=== PATIENT | female | born 1990 | race Two or more races ===

== ENCOUNTER 2019-10-30 08:15 | Emergency (ER) | payer SELFPAY ==
--- NOTE | 2019-10-30 08:46 | EDM.PDOC ---
ED HPI GENERAL MEDICAL PROBLEM - General Chief Complaint: GATE GUARD Problem Stated Complaint: 8 WEEKS PG AND BLEEDING Time Seen by Provider: 10/30/19 08:50 Source of Information: Reports: Patient, Family History Limitations: Reports: Language Barrier, Other (translation by myself and ) - History of Present Illness INITIAL COMMENTS - FREE TEXT/NARRATIVE: HISTORY OF PRESENT ILLNESS: Patient is a 29-year-old female at 8 weeks who presents with vaginal bleeding since yesterday. She has used toilet paper as she has no pads at home and has changed the toilet paper 3 times. She initially had some small clots but now has progressed to light vaginal bleeding. Denies any abdominal pain, nausea vomiting. No fevers chills cough or chest pain. Denies any urinary symptoms. No rash, weakness numbness tingling. Denies any syncope. Patient saw her OB yesterday and had ultrasound performed. She does not know her blood type. REVIEW OF SYSTEMS: Other than the symptoms associated with the present events, the following is reported with regard to recent health: General: (-) fever. HENT: (-) congestion. Respiratory: (-) cough. Cardiovascular: (-) chest pain. GI: (-) abdominal pain. : (-) urinary complaints. Musculoskeletal: (-) other aches or pains. Endocrine: (-) generalized weakness. Neurological: (-) localized weakness. Skin: (-) rash PAST MEDICAL HISTORY: reviewed as per nursing notes SOCIAL HISTORY: reviewed as per nursing notes, MEDICATIONS: Per nurse's note ALLERGIES: Per nurse's note, reviewed by me PHYSICAL EXAMINATION: GENERALIZED APPEARANCE: well developed, well nourished in no distress VITAL SIGNS: Per nurse's note, reviewed by me SKIN: Warm, dry; (-) cyanosis; (-) rash. HEAD: (-) scalp swelling, (-) tenderness. EYES: (-) conjunctival pallor, (-) scleral icterus. ENMT: (-) stridor; mucous membranes moist. NECK: (-) tenderness, (-) stiffness, CHEST AND RESPIRATORY: (-) rales, (-) rhonchi, (-) wheezes; breath sounds equal bilaterally. HEART AND CARDIOVASCULAR: (-) irregularity; (-) murmur, (-) gallop. ABDOMEN AND GI: Soft; (-) tenderness, (-) guarding, (-) rebound, (-) palpable masses, EXTREMITIES: (-) deformity, (-) edema. NEURO AND PSYCH: Alert. Cranial nerves grossly intact; strength symmetric. gait steady PELVIC: scant vaginal bleeding from closed cervical os. no palpable masses. Roof Bolter Operator: DESTIN Craft DIAGNOSTICS: US: as read by radiologist, reviewed by myself Labs ordered and reviewed EMERGENCY DEPARTMENT COURSE AND TREATMENT: Patient's condition remained stable during Emergency Department evaluation. Pt Rh +, Hg noted, ultrasound demonstrating live IUP. Pt hemodynamically stable. Given miscarriage precautions. Must follow-up with OB in 1 to 2 days and return immediately with any new or worsening symptoms. PLAN AND FOLLOW-UP: Patient received written and verbal instructions regarding this condition. Return to ED immediately with any new or worsening symptoms. Follow up to be arranged by patient with OB in 1-2 days for further evaluation. Given discharge precautions. Patient expressed verbal understanding. - Related Data Allergies Allergy/AdvReac Type Severity Reaction Status Date / Time No Known Allergies Allergy Verified 10/30/19 08:36 Home Meds: Home Meds . [No Known Home Meds] 10/30/19 [History] Past Medical History HEENT History: Reports: None Cardiovascular History: Reports: None Respiratory History: Reports: None Gastrointestinal History: Reports: None Genitourinary History: Reports: None GATE GUARD History: Reports: None Musculoskeletal History: Reports: None Neurological History: Reports: None Psychiatric History: Reports: None Endocrine/Metabolic History: Reports: None Hematologic History: Reports: None Immunologic History: Reports: None Oncologic (Cancer) History: Reports: None Dermatologic History: Reports: None - Infectious Disease History Infectious Disease History: Reports: None - Past Surgical History Head Surgeries/Procedures: Reports: None HEENT Surgical History: Reports: None Cardiovascular Surgical History: Reports: None Respiratory Surgical History: Reports: None GI Surgical History: Reports: None Female Surgical History: Reports: None Endocrine Surgical History: Reports: None Neurological Surgical History: Reports: None Musculoskeletal Surgical History: Reports: None Oncologic Surgical History: Reports: None Dermatological Surgical History: Reports: None Social & Family History - Family History Family Medical History: Noncontributory - Tobacco Use Smoking Status *Q: Never Smoker Second Hand Smoke Exposure: No - Caffeine Use Caffeine Use: Reports: None - Recreational Drug Use Recreational Drug Use: No ED ROS GENERAL - Review of Systems Review Of Systems: See Below (see dictation) ED EXAM, GENERAL - Physical Exam Exam: See Below (see dictation) Course - Vital Signs Last Recorded V/S: Last Vital Signs Temp 97.2 F 10/30/19 08:31 Pulse 71 10/30/19 08:31 Resp 18 10/30/19 08:31 BP 106/57 L 10/30/19 08:31 Pulse Ox 98 10/30/19 08:31 - Orders/Labs/Meds Orders: Active Orders 24 hr Category Date Time Status Pelvic Exam, Set Up [RC] ASDIRECTED Care 10/30/19 08:26 Active CULTURE URINE [RM] Stat Lab 10/30/19 08:25 Received Labs: Laboratory Tests 10/30/19 10/30/19 10/30/19 Range/Units 08:25 08:38 08:38 WBC 7.13 (4.0-11.0) K/uL RBC 4.52 (4.30-5.90) M/uL Hgb 14.1 (12.0-16.0) g/dL Hct 40.9 (36.0-46.0) % MCV 90.5 (80.0-98.0) fL MCH 31.2 (27.0-32.0) pg MCHC 34.5 (31.0-37.0) g/dL RDW Std Deviation 41.6 (28.0-62.0) fl RDW Coeff of Yury 13 (11.0-15.0) % Plt Count 232 (150-400) K/uL MPV 9.40 (7.40-12.00) fL Neut % (Auto) 64.6 (48.0-80.0) % Lymph % (Auto) 26.6 (16.0-40.0) % [place] % (Auto) 5.9 (0.0-15.0) % Eos % (Auto) 2.5 (0.0-7.0) % Baso % (Auto) 0.4 (0.0-1.5) % Neut # (Auto) 4.6 (1.4-5.7) K/uL Lymph # (Auto) 1.9 (0.6-2.4) K/uL [place] # (Auto) 0.4 (0.0-0.8) K/uL Eos # (Auto) 0.2 (0.0-0.7) K/uL Baso # (Auto) 0.0 (0.0-0.1) K/uL Nucleated RBC % 0.0 /100WBC Nucleated RBCs # 0 K/uL HCG, Quant 727659.0 mIU/mL Urine Color YELLOW Urine Appearance CLEAR Urine pH 7.0 (5.0-8.0) Ur Specific [place] 1.020 (1.001-1.035) Urine Protein TRACE H (NEGATIVE) mg/dL Urine Glucose (UA) NEGATIVE (NEGATIVE) mg/dL Urine Ketones NEGATIVE (NEGATIVE) mg/dL Urine Occult Blood LARGE H (NEGATIVE) Urine Nitrite NEGATIVE (NEGATIVE) Urine Bilirubin SMALL H (NEGATIVE) Urine Ictotest NEGATIVE Urine Urobilinogen 1.0 (<2.0) EU/dL Ur Leukocyte Esterase TRACE H (NEGATIVE) Urine RBC 10-12 (0-2/HPF) Urine WBC 1-2 (0-5/HPF) Ur Epithelial Cells FEW (NONE-FEW) Urine Bacteria FEW (NEGATIVE) Urine Mucus LIGHT (NONE-MOD) Urinalysis Comment Blood Type 10/30/19 Range/Units 08:38 WBC (4.0-11.0) K/uL RBC (4.30-5.90) M/uL Hgb (12.0-16.0) g/dL Hct (36.0-46.0) % MCV (80.0-98.0) fL MCH (27.0-32.0) pg MCHC (31.0-37.0) g/dL RDW Std Deviation (28.0-62.0) fl RDW Coeff of [place] (11.0-15.0) % Plt Count (150-400) K/uL MPV (7.40-12.00) fL Neut % (Auto) (48.0-80.0) % Lymph % (Auto) (16.0-40.0) % [place] % (Auto) (0.0-15.0) % Eos % (Auto) (0.0-7.0) % Baso % (Auto) (0.0-1.5) % Neut # (Auto) (1.4-5.7) K/uL Lymph # (Auto) (0.6-2.4) K/uL [place] # (Auto) (0.0-0.8) K/uL Eos # (Auto) (0.0-0.7) K/uL Baso # (Auto) (0.0-0.1) K/uL Nucleated RBC % /100WBC Nucleated RBCs # K/uL HCG, Quant mIU/mL Urine Color Urine Appearance Urine pH (5.0-8.0) Ur Specific [place] (1.001-1.035) Urine Protein (NEGATIVE) mg/dL Urine Glucose (UA) (NEGATIVE) mg/dL Urine Ketones (NEGATIVE) mg/dL Urine Occult Blood (NEGATIVE) Urine Nitrite (NEGATIVE) Urine Bilirubin (NEGATIVE) Urine Ictotest Urine Urobilinogen (<2.0) EU/dL Ur Leukocyte Esterase (NEGATIVE) Urine RBC (0-2/HPF) Urine WBC (0-5/HPF) Ur Epithelial Cells (NONE-FEW) Urine Bacteria (NEGATIVE) Urine Mucus (NONE-MOD) Urinalysis Comment Blood Type A POSITIVE Departure - Departure Time of Disposition: 09:53 Disposition: Home, Self-Care 01 Condition: Good Clinical Impression: Threatened miscarriage in early - Discharge Information *PRESCRIPTION DRUG MONITORING PROGRAM REVIEWED*: Not Applicable *COPY OF PRESCRIPTION DRUG MONITORING REPORT IN PATIENT KWAN: Not Applicable Instructions: Threatened Miscarriage, [id number] Referrals: Maryellen Arnold CNM, SOLUTION SALES SENIOR EXECUTIVE [Primary Care Provider] - 1 Day Forms: ED Department Discharge Additional Instructions: The following information is given to patients seen in the emergency department who are being discharged to home. This information is to outline your options for follow-up care. We provide all patients seen in our emergency department with a follow-up referral. The need for follow-up, as well as the timing and circumstances, are variable depending upon the specifics of your emergency department visit. If you don't have a primary care physician on staff, we will provide you with a referral. We always advise you to contact your personal physician following an emergency department visit to inform them of the circumstance of the visit and for follow-up with them and/or the need for any referrals to a consulting specialist. The emergency department will also refer you to a specialist when appropriate. This referral assures that you have the opportunity for follow-up care with a specialist. All of these measure are taken in an effort to provide you with optimal care, which includes your follow-up. Under all circumstances we always encourage you to contact your private physician who remains a resource for coordinating your care. When calling for follow-up care, please make the office aware that this follow-up is from your recent emergency room visit. If for any reason you are refused follow-up, please contact the [facility] Emergency Department at and asked to speak to the emergency department charge nurse. Sepsis Event Note - Evaluation Sepsis Screening Result: No Definite Risk - Focused Exam Vital Signs: Vital Signs Temp Pulse Resp BP Pulse Ox 10/30/19 08:31 97.2 F 71 18 106/57 L 98 Date Exam was Performed: 10/30/19 Time Exam was Performed: 12:26 - My Orders Last 24 Hours: My Active Orders 10/30/19 08:25 CULTURE URINE [RM] Stat 10/30/19 08:26 Pelvic Exam, Set Up [RC] ASDIRECTED - Assessment/Plan Last 24 Hours: My Active Orders 10/30/19 08:25 CULTURE URINE [RM] Stat 10/30/19 08:26 Pelvic Exam, Set Up [RC] ASDIRECTED
--- NOTE | 2019-10-30 09:32 | US ---
First trimester obstetrical ultrasound: Multiple real-time images were obtained transvaginally. Comparison: No previous study for current . Dates: Current ultrasound: JESSY 06/04/20, gestational age 8 weeks 6 days Single intrauterine gestation is seen. Small embryo and yolk sac are seen. No subchorionic hemorrhage is identified. Position of the gestational sac within the uterus appears within normal limits. Maternal left ovary is visualized and appears normal. Right ovary not visualized but right adnexa appears within normal limits. Measurements: [place]-rump length: 2.24 cm - 8 weeks 6 days Heart rate: 185 bpm Impression: 1. Single intrauterine gestation. Dates as noted above. 2. No complicating process is seen by ultrasound at this time. No etiology is seen for the patient's bleeding. Diagnostic code #1 This report was dictated in MDT
== END 2019-10-30 10:07 | disposition home or self-care (01) ==
LOC: MW.ED 08:15
DX: O20.0 Threatened abortion (principal); Z3A.08 8 weeks gestation of pregnancy
CPT/HCPCS: 36415; 76817; 76817-26; 81001; 84702; 85025; 86900; 86901; 87086; 99283; 99284-25

== ENCOUNTER 2020-03-18 15:33 | Observation (INO) | payer OTHER, SELFPAY ==
--- NOTE | 2020-03-18 16:51 | PCM.SN.2 ---
- Free Text/Narrative Note: Caren is at 29 2/7 weeks (JESSY: 06/01/20) presenting to L&D with complaints of lower back and abdominal pain/cramping. She is Indonesian-speaking only and her , Joey, is serving as cableman via [employer]. States that after she went for a walk this afternoon, she noticed pink discharge when she voided and w iped; she suspects it is vaginal in origin. Patient reports history of delivery at 32 and 25 weeks. However, we have been unable to obtain records from previous pregnancies and patient reported weight of two prior deliveries inconsistent with delivery. Will obtain Affirm, ua, and TVUS for cervical length. No contractions noted on monitor at this time.
--- NOTE | 2020-03-18 18:07 | US ---
Limited obstetrical ultrasound: Multiple real-time images were obtained transvaginally. Study obtained of the cervix. Comparison: Previous obstetrical imaging for current is available, most recent exam is 02/10/20. Funneling of the internal cervical os is noted. Cervical length is 2.7 cm. Impression: 1. Findings as noted above. 2. Current cervical length is 2.7 cm comparing to 3.7 cm on prior study. Diagnostic code #3 This report was dictated in MDT
[2020-03-18] MEDS ORDERED: NIFEdipine 30 MG Tab.ER PO ONE (18:15)
[2020-03-18] MEDS ORDERED: Betamethasone Acetate/Betamethasone Sod Phosphate 30 MG/5 ML MDV IM ONE (18:20)
--- NOTE | 2020-03-18 18:26 | PCM.SN.2 ---
- Free Text/Narrative Note: TVUS noted CL 2.7 cm with funneling of the internal os. This is a change from 3.7cm on 02/10/20. I consulted with Dr. Fraser and he has advised two doses of betamethasone, 30 mg Procardia XL, and admit overnight for observation.
[2020-03-18] MEDS ORDERED: Lactated Ringers 1,000 ML IV SCH (18:30)
--- NOTE | 2020-03-18 18:32 | PCM.LDHP ---
L&D History of Present Illness - General Date of Service: 03/18/20 Admit Problem/Dx: Patient Status Order with Admit Dx/Problem 03/18/20 15:40 Patient Status [ADT] Routine 03/18/20 18:18 Admission Status [Patient Status] [ADT] Routine Admission Diagnosis/Problem Admission Diagnosis/Problem 03/18/20 18:33 at 29 2/7 weeks presenting to labor and delivery with complaints of lower back pain and abdominal pain/cramping, as well as pink vaginal discharge. She does report sexual intercourse the last two nights. Hx of delivery at 32 and 35 weeks per patient report. We have not been able to obtain records from previous pregnancies. Affirm, ua, and TVUS obtained. Mild, sporadic contractions noted on monitor. Patient states that she feels them very little. TVUS noted cervical length of 2.7 cm with funneling of the internal os. This is a change from 3.7 cm on 02/10/20. I have consulted with Dr. Fraser and he has advised two doses of betamethasone, 30 mg procardia XL, and overnight observation. Also advise bedrest with bathroom privileges only. Source of Information: Patient History Limitations: Reports: No Limitations - Related Data Allergies/Adverse Reactions: Allergies Allergy/AdvReac Type Severity Reaction Status Date / Time No Known Allergies Allergy Verified 10/30/19 08:36 Home Medications: Home Meds . [No Known Home Meds] 10/30/19 [History] Past Medical History HEENT History: Reports: None Cardiovascular History: Reports: None Respiratory History: Reports: None Gastrointestinal History: Reports: None Genitourinary History: Reports: None FACILITY DESIGNER History: Reports: None Musculoskeletal History: Reports: None Neurological History: Reports: None Psychiatric History: Reports: None Endocrine/Metabolic History: Reports: None Hematologic History: Reports: None Immunologic History: Reports: None Oncologic (Cancer) History: Reports: None Dermatologic History: Reports: None - Infectious Disease History Infectious Disease History: Reports: None - Past Surgical History Head Surgeries/Procedures: Reports: None HEENT Surgical History: Reports: None Cardiovascular Surgical History: Reports: None Respiratory Surgical History: Reports: None GI Surgical History: Reports: None Female Surgical History: Reports: None Endocrine Surgical History: Reports: None Neurological Surgical History: Reports: None Musculoskeletal Surgical History: Reports: None Oncologic Surgical History: Reports: None Dermatological Surgical History: Reports: None Social & Family History - Family History Family Medical History: Noncontributory - Caffeine Use Caffeine Use: Reports: None H&P Review of Systems - Review of Systems: Review Of Systems: See Below General: Reports: No Symptoms HEENT: Reports: No Symptoms Pulmonary: Reports: No Symptoms Cardiovascular: Reports: No Symptoms Gastrointestinal: Reports: No Symptoms Genitourinary: Reports: No Symptoms Musculoskeletal: Reports: No Symptoms Skin: Reports: No Symptoms Psychiatric: Reports: No Symptoms Neurological: Reports: No Symptoms Hematologic/Lymphatic: Reports: No Symptoms Immunologic: Reports: No Symptoms L&D Exam - Exam Exam: See Below - Vital Signs Weight: 119 lb - OB Specific Contraction Intensity: Irritability Movement: Active Heart Tones: Present Heart Rate (FHR) Variability: Moderate (6-25 bmp) - Exam General: Alert, Oriented, Cooperative Lungs: Normal Respiratory Effort Cardiovascular: Regular Rate, Regular Rhythm GI/Abdominal Exam: Soft, Non-Tender Rectal Exam: Deferred Genitourinary: Deferred Back Exam: Normal Inspection, Full Range of Motion Extremities: Normal Inspection, Normal Range of Motion, Non-Tender, No Pedal Edema, Normal Capillary Refill Skin: Warm, Dry, Intact Neurological: Strength Equal Bilateral, Normal Gait, Normal Speech, Normal Tone, Sensation Intact Psychiatric: Alert, Normal Affect, Normal Mood - Patient Data Lab Results Last 24 hrs: Laboratory Results - last 24 hr 03/18/20 03/18/20 Range/Units 16:40 16:40 Urine Color YELLOW Urine Appearance CLEAR Urine pH 7.0 (5.0-8.0) Ur Specific [place] 1.010 (1.001-1.035) Urine Protein NEGATIVE (NEGATIVE) mg/dL Urine Glucose (UA) NEGATIVE (NEGATIVE) mg/dL Urine Ketones NEGATIVE (NEGATIVE) mg/dL Urine Occult Blood SMALL H (NEGATIVE) Urine Nitrite NEGATIVE (NEGATIVE) Urine Bilirubin NEGATIVE (NEGATIVE) Urine Urobilinogen 0.2 (<2.0) EU/dL Ur Leukocyte Esterase LARGE H (NEGATIVE) Urine RBC 1-2 (0-2/HPF) Urine WBC 0-1 (0-5/HPF) Ur Epithelial Cells RARE (NONE-FEW) Urine Bacteria RARE (NEGATIVE) Mary species DNA NEGATIVE (NEGATIVE) [place] DNA Probe NEGATIVE (NEGATIVE) Trichomonas DNA Probe NEGATIVE (NEGATIVE) - Problem List (1) History of delivery SNOMED Code(s): 773559853 ICD Code: Z87.51 - PERSONAL HISTORY OF PRE-TERM LABOR Status: Acute Priority: High Current Visit: Yes (2) Cervix funneling complicating SNOMED Code(s): 9720230, 51894128 ICD Code: O34.30 - MATERNAL CARE FOR CERVICAL INCOMPETENCE, UNSP TRIMESTER Status: Acute Priority: High Current Visit: Yes Qualifiers: Trimester: third trimester Qualified Code(s): O34.33 - Maternal care for cervical incompetence, third trimester (3) Supervision of normal IUP (intrauterine ) in multigravida SNOMED Code(s): 783024848, 130298081, 972195360 ICD Code: Z34.80 - ENCOUNTER FOR SUPRVSN OF NORMAL , UNSP TRIMESTER Status: Acute Priority: High Current Visit: Yes Qualifiers: Trimester: third trimester Qualified Code(s): Z34.83 - Encounter for supe rvision of other normal , third trimester Problem List Initiated/Reviewed/Updated: Yes Orders Last 24hrs: Active Orders 24 hr Category Date Time Status Admission Status [Patient Status] [ADT] Routine ADT 03/18/20 18:18 Active Patient Status [ADT] Routine ADT 03/18/20 15:40 Active Non Stress Test [RC] PER UNIT ROUTINE Care 03/18/20 16:19 Active Up ad Julissa [RC] ASDIRECTED Care 03/18/20 16:19 Active Vaginal Exam [RC] Click to Edit Care 03/18/20 16:19 Active Vital Signs [RC] PER UNIT ROUTINE Care 03/18/20 16:19 Active Lactated Ringers [Ringers, Lactated] 1,000 ml Med 03/18/20 18:30 Active IV ASDIRECTED Resuscitation Status Routine Resus Stat 03/18/20 16:19 Ordered Medication Orders Lactated Ringer's (Ringers, Lactated) 1,000 mls @ 150 mls/hr IV ASDIRECTED TOM Assessment/Plan Comment:: Admit A: at 29 2/7 weeks presenting to labor and delivery with complaints of lower back pain and abdominal pain/cramping, as well as pink vaginal discharge. She does report sexual intercourse the last two nights. Hx of delivery at 32 and 35 weeks per patient report. We have not been able to obtain records from previous pregnancies. Affirm, ua, and TVUS obtained. Mild, sporadic contractions noted on monitor. Patient states that she feels them very little. TVUS noted cervical length of 2.7 cm with funneling of the internal os. This is a change from 3.7 cm on 02/10/20. I have consulted with Dr. Fraser and he has advised two doses of betamethasone, 30 mg procardia XL, and overnight observation. Also advise bedrest with bathroom privileges only. P: Admit for overnight observation; to receive 30 mg Procardia XL, betamethasone 12mg IM q24 x2 doses; bedrest with bathroom privileges only; Dr. Fraser updated
[2020-03-18] MEDS ORDERED: Terbutaline 1 MG/ML SDV SUBCUT ONE (20:03)
[2020-03-18] MEDS: Nitrofurantoin Monohydrate/Macrocrystalline 100 MG Cap PO SCH (21:26)
[2020-03-19] MEDS ORDERED: Betamethasone Acetate/Betamethasone Sod Phosphate 30 MG/5 ML MDV IM ONE (08:15)
[2020-03-19] MEDS: Nitrofurantoin Monohydrate/Macrocrystalline 100 MG Cap PO SCH (08:21)
--- NOTE | 2020-03-19 08:22 | US ---
INDICATION: . Assess cervical length. TECHNIQUE: Ultrasound OB pelvis transvaginal. Real-time weston-scale imaging of the pelvis was performed. COMPARISON: March 18, 2020 IMPRESSION: Single viable intrauterine with a heart rate of 160 beats per minute. Cervix measures 2.5 cm in length with mild funneling and minimal fluid in the endocervical canal. These findings are unchanged from yesterday`s exam. Dictated by Vince Duran MD @ Mar 19 2020 8:14AM Signed by Dr. Vince Duran @ Mar 19 2020 8:20AM
--- NOTE | 2020-03-19 08:29 | PCM.DCSUM1 ---
Discharge Summary - Hospital Course Free Text/Narrative:: Discharge home. Bedrest except for bathroom privileges. Follow up in the clinic on Sunday morning (03/22/20) @ 0900. Per Dr. Fraser start micronized progesterone 100mg daily. Diagnosis: Stroke: No Modified Kermit Scale: No Symptoms at All Modified [place] Scale Score: 0 - Discharge Data Discharge Date: 03/19/20 Discharge Disposition: Home, Self-Care 01 Condition: Good - Referral to Home Health Primary Care Physician: PCP None - Discharge Diagnosis/Problem(s) (1) History of delivery SNOMED Code(s): 284625001 ICD Code: Z87.51 - PERSONAL HISTORY OF PRE-TERM LABOR Status: Acute Priority: High Current Visit: Yes (2) Cervix funneling complicating SNOMED Code(s): 2887368, 59349057 ICD Code: O34.30 - MATERNAL CARE FOR CERVICAL INCOMPETENCE, UNSP TRIMESTER Status: Acute Priority: High Current Visit: Yes Qualifiers: Trimester: third trimester Qualified Code(s): O34.33 - Maternal care for cervical incompetence, third trimester (3) Supervision of normal IUP (intrauterine ) in multigravida SNOMED Code(s): 535306798, 396536169, 329634577 ICD Code: Z34.80 - ENCOUNTER FOR SUPRVSN OF NORMAL , UNSP TRIMESTER Status: Acute Priority: High Current Visit: Yes Qualifiers: Trimester: third trimester Qualified Code(s): Z34.83 - Encounter for supervision of other normal , third trimester - Patient Instructions Diet: Regular Diet as Tolerated, Drink 8-10+ Glasses/Day Activity: Bedrest, May Use Bathroom Driving: Do Not Drive - Discharge Plan *PRESCRIPTION DRUG MONITORING PROGRAM REVIEWED*: Not Applicable *COPY OF PRESCRIPTION DRUG MONITORING REPORT IN PATIENT KWAN: Not Applicable Home Medications: Home Meds . [No Known Home Meds] 10/30/19 [History] Oxygen Therapy Mode: Room Air Referrals: Peter Fraser MD [Physician] - 03/22/20 9:00 am - Discharge Summary/Plan Comment DC Time >30 min.: Yes - General Info Date of Service: 03/19/20 Admission Dx/Problem (Free Text: Patient Status Order with Admit Dx/Problem 03/18/20 15:40 Patient Status [ADT] Routine 03/18/20 18:18 Admission Status [Patient Status] [ADT] Routine Admission Diagnosis/Problem Admission Diagnosis/Problem 03/18/20 18:33 at 29 2/7 weeks presenting to labor and delivery with complaints of lower back pain and abdominal pain/cramping, as well as pink vaginal discharge. She does report sexual intercourse the last two nights. Hx of delivery at 32 and 35 weeks per patient report. We have not been able to obtain records from previous pregnancies. Affirm, ua, and TVUS obtained. Mild, sporadic contractions noted on monitor. Patient states that she feels them very little. TVUS noted cervical length of 2.7 cm with funneling of the internal os. This is a change from 3.7 cm on 02/10/20. I have consulted with Dr. Fraser and he has advised two doses of betamethasone, 30 mg procardia XL, and overnight observation. Also advise bedrest with bathroom privileges only. Functional Status: Reports: Pain Controlled, Tolerating Diet, Urinating - Review of Systems General: Reports: No Symptoms HEENT: Reports: No Symptoms Pulmonary: Reports: No Symptoms Cardiovascular: Reports: No Symptoms Gastrointestinal: Reports: No Symptoms Genitourinary: Reports: No Symptoms Musculoskeletal: Reports: No Symptoms Skin: Reports: No Symptoms Neurological: Reports: No Symptoms Psychiatric: Reports: No Symptoms - Patient Data Vitals - Most Recent: Last Vital Signs Temp Pulse Resp BP 108/58 L 03/18/20 18:29 Pulse Ox Weight - Most Recent: 125 lb Lab Results - Last 24 hrs: Laboratory Results - last 24 hr 03/18/20 03/18/20 03/18/20 Range/Units 16:40 16:40 18:45 Urine Color YELLOW Urine Appearance CLEAR Urine pH 7.0 (5.0-8.0) Ur Specific [place] 1.010 (1.001-1.035) Urine Protein NEGATIVE (NEGATIVE) mg/dL Urine Glucose (UA) NEGATIVE (NEGATIVE) mg/dL Urine Ketones NEGATIVE (NEGATIVE) mg/dL Urine Occult Blood SMALL H (NEGATIVE) Urine Nitrite NEGATIVE (NEGATIVE) Urine Bilirubin NEGATIVE (NEGATIVE) Urine Urobilinogen 0.2 (<2.0) EU/dL Ur Leukocyte Esterase LARGE H (NEGATIVE) Urine RBC 1-2 (0-2/HPF) Urine WBC 0-1 (0-5/HPF) Ur Epithelial Cells RARE (NONE-FEW) Urine Bacteria RARE (NEGATIVE) Mary species DNA NEGATIVE (NEGATIVE) COVID-19 (GENIE) NEGATIVE (NEGATIVE) Gardnerella DNA Probe NEGATIVE (NEGATIVE) Trichomonas DNA Probe NEGATIVE (NEGATIVE) Med Orders - Current: Current Medications Lactated Ringer's (Ringers, Lactated) 1,000 mls @ 150 mls/hr IV ASDIRECTED [facility] Last Admin: 03/18/20 18:42 Dose: 150 mls/hr Documented by: Nitrofurantoin Macrocrystals (Macrobid) 100 mg PO BID [facility] Last Admin: 03/19/20 08:21 Dose: 100 mg Documented by: Discontinued Medications Betamethasone Acet/Betameth SodPhos ([place]estone Soluspan 6 Mg/Ml) 12 mg IM ONETIME ONE Stop: 03/18/20 18:21 Last Admin: 03/18/20 18:59 Dose: 12 mg Documented by: Betamethasone Acet/Betameth SodPhos (Celestone Soluspan 6 Mg/Ml) 12 mg IM ONETIME ONE Stop: 03/19/20 08:16 Last Admin: 03/19/20 08:12 Dose: 12 mg Documented by: Nifedipine (Procardia Xl) 30 mg PO ONETIME ONE Stop: 03/18/20 18:16 Last Admin: 03/18/20 18:29 Dose: 30 mg Documented by: Terbutaline Sulfate (Brethine) 0.25 mg SUBCUT ONETIME ONE Stop: 03/18/20 20:04 Last Admin: 03/18/20 20:26 Dose: 0.25 mg Documented by: - Exam General: Reports: Alert, Oriented, Cooperative, No Acute Distress Lungs: Reports: Normal Respiratory Effort Cardiovascular: Reports: Regular Rate, Regular Rhythm GI/Abdominal Exam: Soft, Non-Tender (Female) Exam: Deferred Rectal (Female) Exam: Deferred Back Exam: Reports: Normal Inspection, Full Range of Motion Extremities: Normal Inspection, Normal Range of Motion, Non-Tender, No Pedal Edema, Normal Capillary Refill Skin: Reports: Warm, Dry, Intact Neurological: Reports: No New Focal Deficit, Normal Speech, Normal Tone, Strength Equal Bilateral, Sensation Intact Psy/Mental Status: Reports: Alert, Normal Affect, Normal Mood
== END 2020-03-19 09:00 | disposition home or self-care (01) ==
LOC: MW.OBCHECK 15:33 → MW.OB 15:33 → MW.OBCHECK 18:18
PROVIDERS: ADMIT Obstetrics & Gynecology; ATTEND Obstetrics & Gynecology
DX: O34.33 Maternal care for cervical incompetence, third trimester (principal); Z20.828 Contact with and (suspected) exposure to other viral communicable diseases; Z87.51 Personal history of pre-term labor; Z3A.29 29 weeks gestation of pregnancy
CPT/HCPCS: 59025; 76817; 81001; 87086; 87480; 87510; 87635; 87660; 96372; A9270; G0378; J0702; J3105; J7120; U0002

== ENCOUNTER 2020-03-22 09:39 | Day surgery (SDC) | payer OTHER ==
[2020-03-22] MEDS ORDERED: Lactated Ringers 1,000 ML IV SCH (10:00)
--- NOTE | 2020-03-22 11:08 | PCM.PREANE ---
Preanesthetic Assessment - Anesthesia/Transfusion/Family Hx Anesthesia History: No Prior Anesthesia Family History of Anesthesia Reaction: No Transfusion History: No Prior Transfusion(s) - Review of Systems General: No Symptoms Pulmonary: No Symptoms Cardiovascular: No Symptoms Gastrointestinal: No Symptoms Neurological: No Symptoms Other: Reports: None - Physical Assessment NPO Status Date: 03/22/20 NPO Status Time: 08:00 Height: 5 ft 1 in Weight: 57.153 kg ASA Class: 2E Mental Status: Alert & Oriented x3 Airway Class: Mallampati = 2 Dentition: Reports: Normal Dentition ROM/Head Extension: Full Lungs: Clear to Auscultation, Normal Respiratory Effort Cardiovascular: Regular Rate, Regular Rhythm - Lab Values: Laboratory Last Values SARS Virus RNA (PCR) NEGATIVE (NEGATIVE) 03/22/20 09:38 - Allergies Allergies/Adverse Reactions: Allergies Allergy/AdvReac Type Severity Reaction Status Date / Time No Known Allergies Allergy Verified 03/22/20 10:13 - Blood Blood Available: No - Anesthesia Plan Pre-Op Medication Ordered: None - Acknowledgements Anesthesia Type Planned: Spinal Pt an Appropriate Candidate for the Planned Anesthesia: Yes Alternatives and Risks of Anesthesia Discussed w Pt/Guardian: Yes Pt/Guardian Understands and Agrees with Anesthesia Plan: Yes PreAnesthesia Questionnaire HEENT History: Reports: None Cardiovascular History: Reports: None Respiratory History: Reports: None Gastrointestinal History: Reports: GERD Genitourinary History: Reports: None [employer]ILD [employer]ER History: Reports: Other OB/BYN History: currently 30 weeks Musculoskeletal History: Reports: None Neurological History: Reports: None Psychiatric History: Reports: None Endocrine/Metabolic History: Reports: None Hematologic History: Reports: None Immunologic History: Reports: None Oncologic (Cancer) History: Reports: None Dermatologic History: Reports: None - Infectious Disease History Infectious Disease History: Reports: None - Past Surgical History Head Surgeries/Procedures: Reports: None HEENT Surgical History: Reports: None Cardiovascular Surgical History: Reports: None Respiratory Surgical History: Reports: None GI Surgical History: Reports: None Female Surgical History: Reports: None Endocrine Surgical History: Reports: None Neurological Surgical History: Reports: None Musculoskeletal Surgical History: Reports: None Oncologic Surgical History: Reports: None Dermatological Surgical History: Reports: None - SUBSTANCE USE Smoking Status *Q: Never Smoker Recreational Drug Use History: No - HOME MEDS Home Medications: Home Meds Docosahexaenoic Acid [ Dha] 200 mg PO DAILY 03/22/20 [History] Magnesium Hydroxide [Milk of Magnesia] 1,200 mg PO ASDIRECTED PRN 03/22/20 [History] Omeprazole 20 mg PO DAILY 03/22/20 [History] Ondansetron [Ondansetron ODT] 4 mg SL Q4H PRN 03/22/20 [History] Progesterone, Micronized [Progesterone] 100 mg PO BEDTIME 03/22/20 [History] nitrofurantoin macrocrystaL [Nitrofurantoin] 100 mg PO BID 03/22/20 [History] - CURRENT (IN HOUSE) MEDS Current Meds: Current Medications Lactated Ringer's (Ringers, Lactated) 1,000 mls @ 125 mls/hr IV ASDIRECTED TOM
--- NOTE | 2020-03-22 12:45 | PCM.POSTAN ---
POST ANESTHESIA ASSESSMENT - MENTAL STATUS Mental Status: Alert, Oriented - VITAL SIGNS Vital Signs: Last Vital Signs Temp 36.4 C 03/22/20 12:19 Pulse 76 03/22/20 12:36 Resp 12 03/22/20 12:36 BP 102/51 L 03/22/20 12:36 Pulse Ox 100 03/22/20 12:36 - RESPIRATORY Respiratory Status: Respiratory Rate WNL, Airway Patent, O2 Saturation Stable - CARDIOVASCULAR CV Status: Pulse Rate WNL, Blood Pressure Stable - GASTROINTESTINAL GI Status: No Symptoms - PAIN Pain Score: 0 - POST OP HYDRATION Hydration Status: Adequate & Stable - OBSERVATIONS Free Text/Narrative:: spinal regressing
--- NOTE | 2020-03-22 13:23 | PCM48HPAN ---
Post Anesthesia Note - EVALUATION WITHIN 48HRS OF ANESTHETIC Vital Signs in Normal Range: Yes Patient Participated in Evaluation: Yes Respiratory Function Stable: Yes Airway Patent: Yes Cardiovascular Function Stable: Yes Hydration Status Stable: Yes Pain Control Satisfactory: Yes Nausea and Vomiting Control Satisfactory: Yes Mental Status Recovered: Yes Vital Signs: Last Vital Signs Temp 97.5 F 03/22/20 12:19 Pulse 76 03/22/20 12:36 Resp 12 03/22/20 12:36 BP 102/51 L 03/22/20 12:36 Pulse Ox 100 03/22/20 12:36
--- NOTE | 2020-03-22 15:11 | OR ---
SURGEON: Peter Fraser MD DATE OF PROCEDURE: 03/22/2020 PREOPERATIVE DIAGNOSIS: Intrauterine at 29 weeks with cervical incompetence. POSTOPERATIVE DIAGNOSIS: Intrauterine at 29 weeks with cervical incompetence. OPERATION PERFORMED: Emergency Cruz cerclage. PRIMARY SURGEON: Peter Fraser MD QA ANALYST: OR tech. ANESTHESIA: Spinal, Dr. Ellington. ESTIMATED BLOOD LOSS: Less than 50 mL. COMPLICATIONS: None. INDICATIONS FOR SURGERY: This patient is 29 weeks. She was seen in the Labor and Delivery over the weekend with premature contraction. Ultrasound shows funneling of amniotic fluid and decreasing cervical length. Today, I saw her in the office, and she is dilated to about 3 cm with a bulging bag of water, so a decision is made to do emergency cerclage. Hopefully, will hold her for another 2-3 weeks and to enhance the chance of the maturity of the fetus. PROCEDURE IN DETAIL: The patient was brought to the OR, properly identified, and after adequate level of anesthesia, the patient was placed in lithotomy position with Trendelenburg. The patient was prepped and draped in sterile fashion as usual. Straight catheter was used to empty the bladder and then weighted speculum placed in the vagina. Two ring forceps were applied to the anterior and posterior lips of the cervix and then the amniotic membrane was gently pushed inside the uterus, and using Mersilene band, Cruz cerclage in a circular fashion was performed and tied with due amount of tension to close the cervix. Inspection of the operative field, there was no oozing, no bleeding. At this time, the procedure was ended. The instrument and sponge count was correct. The patient tolerated the procedure well, went to recovery room in stable general condition. SNEHA / RANDI /[id number]
== END 2020-03-22 15:18 | disposition home or self-care (01) ==
LOC: MW.SDS 09:39
PROVIDERS: ATTEND Obstetrics & Gynecology
DX: O34.33 Maternal care for cervical incompetence, third trimester (principal); O99.613 Diseases of the digestive system complicating pregnancy, third trimester; K21.9 Gastro-esophageal reflux disease without esophagitis; Z11.59 Encounter for screening for other viral diseases; Z3A.29 29 weeks gestation of pregnancy
CPT/HCPCS: 59320; 87635; J7120; 00948; U0002

== ENCOUNTER 2020-06-25 12:45 | Emergency (ER) | payer OTHER, SELFPAY ==
[2020-06-25] MEDS ORDERED: Sodium Chloride 0.9% 1,000 ML IV ONE (13:47)
[2020-06-25] MEDS ORDERED: Sodium Chloride 0.9% 2.5 ML Syringe FLUSH PRN (13:47)
[2020-06-25] MEDS ORDERED: Famotidine 20 MG/2 ML SDV IVPUSH ONE (13:47)
[2020-06-25] MEDS ORDERED: Ondansetron 4 MG/2 ML SDV IVPUSH ONE (13:47)
[2020-06-25] MEDS ORDERED: Ketorolac 15 MG/ML SDV IVPUSH ONE (13:47)
[2020-06-25] MEDS ORDERED: Sodium Chloride 0.9% 10 ML Syringe FLUSH PRN (13:47)
--- NOTE | 2020-06-25 14:47 | US ---
Indication: Right upper quadrant abdomen pain TECHNIQUE: Ultrasound abdomen limited. Sonographic images of the right upper quadrant were obtained using weston-scale and color Doppler images. Comparison: None FINDINGS: Liver: Normal in size and echotexture. No masses. No intrahepatic biliary dilatation. Gallbladder: There are multiple mobile calculi within the gallbladder. There is sonographic Carrasco`s tenderness without evidence of pericholecystic fluid or gallbladder wall thickening. Normal wall thickness. No pericholecystic fluid. Common bile duct: 5.4 mm. Pancreas: Normal. Right kidney: The kidney is normal in size contour and echogenicity without evidence of hydronephrosis. Impression: Cholelithiasis with sonographic Carrasco`s tenderness which may be a sensitive indicator early cholecystitis. Follow-up with hepatobiliary imaging is recommended for confirmation. Dictated by Grzegorz Mansfield MD @ Jun 25 2020 2:41PM Signed by Dr. Grzegorz Mansfield @ Jun 25 2020 2:45PM
--- NOTE | 2020-06-25 15:04 | EDM.PDOC ---
ED HPI GENERAL MEDICAL PROBLEM - General Chief Complaint: Abdominal Pain Stated Complaint: ABDOMINAL PAIN / LOWER BACK PAIN / NAUSEA/ Time Seen by Provider: 06/25/20 13:39 Source of Information: Reports: Patient, Receiving Manager History Limitations: Reports: No Limitations - History of Present Illness INITIAL COMMENTS - FREE TEXT/NARRATIVE: History of present illness: [Patient is 29-year-old female who presents with epigastric and right upper quadrant abdominal pain starting this morning. She states that she has had these pains off and on over the last few weeks. They are associated with nausea. No vomiting or diarrhea. No fever. She states they seem to be exacerbated by eating, especially greasy and fatty foods. She denies any chest pain or shortness of breath. Denies any previous belly surgery. Tried taking Tylenol at home with minimal relief. Denies history of GERD.] Review of systems: As per history of present illness and below otherwise all systems reviewed and negative. Past medical history: As per history of present illness and as reviewed below otherwise noncontributory. Surgical history: As per history of present illness and as reviewed below otherwise noncontributory. Social history: No reported history of drug or alcohol abuse. Family history: As per history of present illness and as reviewed below otherwise noncontributory. Physical exam: General: Awake, alert, no acute distress, A&O X3. HEENT: Atraumatic, normocephalic, pupils reactive, negative for conjunctival pallor or scleral icterus, mucous membranes moist, throat clear, neck supple, nontender, trachea midline. Lungs: Clear to auscultation, breath sounds equal bilaterally, chest nontender. Heart: RRR, normal S1S2, no JVD. Abdomen: Soft, nondistended, mild epigastric and RUQ tenderness without rebound or guarding. Pelvis: Stable nontender. Genitourinary: Deferred. Rectal: Deferred. Extremities: Atraumatic, no edema, Neurovascular unremarkable. Neuro: Motor and sensory grossly intact throughout. Exam nonfocal. Diagnostics: [] Therapeutics: [] Impression: [] Plan: [] Definitive disposition and diagnosis as appropriate pending reevaluation and review of above. Abdomen Pain Score (Numeric/FACES): 9 - Related Data Allergies Allergy/AdvReac Type Severity Reaction Status Date / Time No Known Allergies Allergy Verified 08/03/20 10:13 Home Meds: Home Meds Docosahexaenoic Acid [ Dha] 200 mg PO DAILY 03/22/20 [History] Magnesium Hydroxide [Milk of Magnesia] 1,200 mg PO ASDIRECTED PRN 03/22/20 [History] Omeprazole 20 mg PO DAILY 03/22/20 [History] Ondansetron [Ondansetron ODT] 4 mg SL Q4H PRN 03/22/20 [History] Progesterone, Micronized [Progesterone] 100 mg PO BEDTIME 03/22/20 [History] nitrofurantoin macrocrystaL [Nitrofurantoin] 100 mg PO BID 03/22/20 [History] Famotidine [Pepcid] 20 mg PO BID #20 tab 06/25/20 [Rx] Naproxen 500 mg PO BID #20 tablet 06/25/20 [Rx] Ondansetron [Zofran ODT] 4 mg PO Q6H PRN #8 tab.dis 06/25/20 [Rx] Past Medical History HEENT History: Reports: None Cardiovascular History: Reports: None Respiratory History: Reports: None Gastrointestinal History: Reports: None Genitourinary History: Reports: None DOOR SLINGER History: Reports: None, , Other (See Below) Other DOOR SLINGER History: 04/2020 Vaginal Musculoskeletal History: Reports: None Neurological History: Reports: None Psychiatric History: Reports: None Endocrine/Metabolic History: Reports: None Hematologic History: Reports: None Immunologic History: Reports: None Oncologic (Cancer) History: Reports: None Dermatologic History: Reports: None - Infectious Disease History Infectious Disease History: Reports: Chicken Pox - Past Surgical History Head Surgeries/Procedures: Reports: None HEENT Surgical History: Reports: None Cardiovascular Surgical History: Reports: None Respiratory Surgical History: Reports: None GI Surgical History: Reports: None Female Surgical History: Reports: None Endocrine Surgical History: Reports: None Neurological Surgical History: Reports: None Musculoskeletal Surgical History: Reports: None Oncologic Surgical History: Reports: None Dermatological Surgical History: Reports: None Social & Family History - Family History Family Medical History: Noncontributory - Tobacco Use Tobacco Use Status *Q: Never Tobacco User Second Hand Smoke Exposure: No - Caffeine Use Caffeine Use: Reports: None - Recreational Drug Use Recreational Drug Use: No ED ROS GENERAL - Review of Systems Review Of Systems: Comprehensive ROS is negative, except as noted in HPI. ED EXAM, GI/ABD - Physical Exam Exam: See Below (see h and p) Course - Vital Signs Text/Narrative:: On reevaluation after getting fluids and Toradol the patient reports feeling much better. Pain has resolved. Ultrasound shows evidence of cholelithiasis and a positive Carrasco sign but no gallbladder wall thickening and no pericholecystic fluid. Her labs show no elevated LFTs or total bili. This work -up is somewhat equivocal. Her lipase is also mildly elevated. Based on my exam, and her overall work-up I do not believe the patient has acute cholecystitis. There is no white count. Her pain is essentially resolved on reevaluation and she has benign belly exam on reeval. I spoke with Dr. Wong, surgical consult, he believes the patient is a candidate for following up in the clinic next week and agreed to see her on Sunday. I updated the patient and her with this plan and they are agreeable with it. Strict return precautions provided for new or worsening symptoms including persistent and worsening abdominal pain, intractable nausea vomiting, fever, etc. Patient is otherwise well-appearing and nontoxic at the time of discharge home. I gave her instructions regarding diet and managing her symptoms. Last Recorded V/S: Last Vital Signs Temp 36.6 C 06/25/20 13:45 Pulse 94 06/25/20 13:45 Resp 18 06/25/20 13:45 BP 126/76 06/25/20 13:45 Pulse Ox 98 06/25/20 13:45 - Orders/Labs/Meds Orders: Active Orders 24 hr Category Date Time Status CULTURE URINE [RM] Stat Lab 06/25/20 13:55 Received Sodium Chloride 0.9% [Saline Flush] Med 06/25/20 13:47 Active 10 ml FLUSH ASDIRECTED PRN Sodium Chloride 0.9% [Saline Flush] Med 06/25/20 13:47 Active 2.5 ml FLUSH ASDIRECTED PRN Saline Lock Insert [OM.PC] Stat Oth 06/25/20 13:47 Ordered Medication Orders Sodium Chloride (Saline Flush) 10 ml FLUSH ASDIRECTED PRN PRN Reason: Keep Vein Open Last Admin: 06/25/20 15:08 Dose: 10 ml Documented by: MELANI Sodium Chloride (Saline Flush) 2.5 ml FLUSH ASDIRECTED PRN PRN Reason: Keep Vein Open Labs: Laboratory Tests 06/25/20 06/25/20 06/25/20 Range/Units 13:55 13:55 14:45 WBC 9.41 (4.0-11.0) K/uL RBC 4.64 (4.30-5.90) M/uL Hgb 14.0 (12.0-16.0) g/dL Hct 42.3 (36.0-46.0) % MCV 91.2 (80.0-98.0) fL MCH 30.2 (27.0-32.0) pg MCHC 33.1 (31.0-37.0) g/dL RDW Std Deviation 44.7 (28.0-62.0) fl RDW Coeff of [place] 14 (11.0-15.0) % Plt Count 275 (150-400) K/uL MPV 9.60 (7.40-12.00) fL Neut % (Auto) 69.3 (48.0-80.0) % Lymph % (Auto) 24.3 (16.0-40.0) % [place] % (Auto) 4.9 (0.0-15.0) % Eos % (Auto) 0.9 (0.0-7.0) % Baso % (Auto) 0.6 (0.0-1.5) % Neut # (Auto) 6.5 H (1.4-5.7) K/uL Lymph # (Auto) 2.3 (0.6-2.4) K/uL [place] # (Auto) 0.5 (0.0-0.8) K/uL Eos # (Auto) 0.1 (0.0-0.7) K/uL Baso # (Auto) 0.1 (0.0-0.1) K/uL Nucleated RBC % 0.0 /100WBC Nucleated RBCs # 0 K/uL INR APTT (18.6-31.3) SEC Sodium (136-145) mmol/L Potassium (3.5-5.1) mmol/L Chloride (98-107) mmol/L Carbon Dioxide (21.0-32.0) mmol/L BUN (7.0-18.0) mg/dL Creatinine (0.6-1.0) mg/dL Est Cr Clr Drug Dosing mL/min Estimated GFR (MDRD) ml/min Glucose (74-106) mg/dL Calcium (8.5-10.1) mg/dL Total Bilirubin (0.2-1.0) mg/dL AST (15-37) IU/L ALT (14-63) IU/L Alkaline Phosphatase (46-116) U/L Total Protein (6.4-8.2) g/dL Albumin (3.4-5.0) g/dL Globulin (2.6-4.0) g/dL Albumin/Globulin Ratio (0.9-1.6) Lipase (73-393) U/L HCG, Qual (NEG) Urine Color YELLOW Urine Appearance CLEAR Urine pH 7.0 (5.0-8.0) Ur Specific [place] 1.010 (1.001-1.035) Urine Protein NEGATIVE (NEGATIVE) mg/dL Urine Glucose (UA) NEGATIVE (NEGATIVE) mg/dL Urine Ketones NEGATIVE (NEGATIVE) mg/dL Urine Occult Blood TRACE-INTACT H (NEGATIVE) Urine Nitrite POSITIVE H (NEGATIVE) Urine Bilirubin NEGATIVE (NEGATIVE) Urine Urobilinogen 0.2 (<2.0) EU/dL Ur Leukocyte Esterase NEGATIVE (NEGATIVE) Urine RBC 0-2 (0-2/HPF) Urine WBC 0-2 (0-5/HPF) Ur Epithelial Cells RARE (NONE-FEW) Urine Bacteria FEW (NEGATIVE) Urine HCG, Qual NEGATIVE (NEGATIVE) 06/25/20 06/25/20 06/25/20 Range/Units 14:45 14:45 14:45 WBC (4.0-11.0) K/uL RBC (4.30-5.90) M/uL Hgb (12.0-16.0) g/dL Hct (36.0-46.0) % MCV (80.0-98.0) fL MCH (27.0-32.0) pg MCHC (31.0-37.0) g/dL RDW Std Deviation (28.0-62.0) fl RDW Coeff of [place] (11.0-15.0) % Plt Count (150-400) K/uL MPV (7.40-12.00) fL Neut % (Auto) (48.0-80.0) % Lymph % (Auto) (16.0-40.0) % [place] % (Auto) (0.0-15.0) % Eos % (Auto) (0.0-7.0) % Baso % (Auto) (0.0-1.5) % Neut # (Auto) (1.4-5.7) K/uL Lymph # (Auto) (0.6-2.4) K/uL [place] # (Auto) (0.0-0.8) K/uL Eos # (Auto) (0.0-0.7) K/uL Baso # (Auto) (0.0-0.1) K/uL Nucleated RBC % /100WBC Nucleated RBCs # K/uL INR 1.05 APTT 24.5 (18.6-31.3) SEC Sodium 140 (136-145) mmol/L Potassium 3.5 (3.5-5.1) mmol/L Chloride 104 (98-107) mmol/L Carbon Dioxide 25.1 (21.0-32.0) mmol/L BUN 9 (7.0-18.0) mg/dL Creatinine 0.8 (0.6-1.0) mg/dL Est Cr Clr Drug Dosing 73.63 mL/min Estimated GFR (MDRD) > 60.0 ml/min Glucose 76 (74-106) mg/dL Calcium 9.2 (8.5-10.1) mg/dL Total Bilirubin 0.4 (0.2-1.0) mg/dL AST 52 H (15-37) IU/L ALT 52 (14-63) IU/L Alkaline Phosphatase 89 (46-116) U/L Total Protein 7.9 (6.4-8.2) g/dL Albumin 3.9 (3.4-5.0) g/dL Globulin 4.0 (2.6-4.0) g/dL Albumin/Globulin Ratio 1.0 (0.9-1.6) Lipase 363 (73-393) U/L HCG, Qual NEGATIVE (NEG) Urine Color Urine Appearance Urine pH (5.0-8.0) Ur Specific [place] (1.001-1.035) Urine Protein (NEGATIVE) mg/dL Urine Glucose (UA) (NEGATIVE) mg/dL Urine Ketones (NEGATIVE) mg/dL Urine Occult Blood (NEGATIVE) Urine Nitrite (NEGATIVE) Urine Bilirubin (NEGATIVE) Urine Urobilinogen (<2.0) EU/dL Ur Leukocyte Esterase (NEGATIVE) Urine RBC (0-2/HPF) Urine WBC (0-5/HPF) Ur Epithelial Cells (NONE-FEW) Urine Bacteria (NEGATIVE) Urine HCG, Qual (NEGATIVE) Meds: Medications Generic Name Dose Route Start Last Admin Trade Name Freq PRN Reason Stop Dose Admin Sodium Chloride 10 ml 06/25/20 13:47 06/25/20 15:08 Saline Flush FLUSH 10 ml ASDIRECTED PRN Administration Keep Vein Open Sodium Chloride 2.5 ml 06/25/20 13:47 Saline Flush FLUSH ASDIRECTED PRN Keep Vein Open Discontinued Medications Generic Name Dose Route Start Last Admin Trade Name Freq PRN Reason Stop Dose Admin Famotidine 20 mg 06/25/20 13:47 06/25/20 14:56 Pepcid IVPUSH 06/25/20 13:48 20 mg ONETIME ONE Administration Sodium Chloride 1,000 mls @ 999 mls/hr 06/25/20 13:47 06/25/20 14:56 Normal Saline IV 06/25/20 14:47 999 mls/hr .Bolus ONE Administration Ketorolac Tromethamine 15 mg 06/25/20 13:47 06/25/20 14:56 Toradol IVPUSH 06/25/20 13:48 15 mg ONETIME ONE Administration Ondansetron HCl 4 mg 06/25/20 13:47 06/25/20 14:56 Zofran IVPUSH 06/25/20 13:48 4 mg ONETIME ONE Administration Departure - Departure Time of Disposition: 15:49 Disposition: Home, Self-Care 01 Condition: Good Clinical Impression: Cholelithiasis, Biliary colic - Discharge Information Prescriptions: Naproxen 500 mg PO BID #20 tablet Famotidine [Pepcid] 20 mg PO BID #20 tab Ondansetron [Zofran ODT] 4 mg PO Q6H PRN #8 tab.dis PRN Reason: Nausea Instructions: Cholelithiasis, [id number] Referrals: PCP,None [Primary Care Provider] - Jerzy Wong MD [Physician] - Forms: ED Department Discharge Additional Instructions: [facility] - General Surgery Professional Building [address] [place] [address], [address] [place], [place] [address] Follow-up with Dr. Wong, general surgeon, on Sunday at 1:30 PM. Take all medications as prescribed. Return to the ER with any new or worsening symptoms. The following information is given to patients seen in the emergency department who are being discharged to home. This information is to outline your options for follow-up care. We provide all patients seen in our emergency department with a follow-up referral. The need for follow-up, as well as the timing and circumstances, are variable depending upon the specifics of your emergency department visit. If you don't have a primary care physician on staff, we will provide you with a referral. We always advise you to contact your personal physician following an emergency department visit to inform them of the circumstance of the visit and for follow-up with them and/or the need for any referrals to a consulting specialist. The emergency department will also refer you to a specialist when appropriate. This referral assures that you have the opportunity for follow-up care with a specialist. All of these measure are taken in an effort to provide you with opt imal care, which includes your follow-up. Under all circumstances we always encourage you to contact your private physician who remains a resource for coordinating your care. When calling for follow-up care, please make the office aware that this follow-up is from your recent emergency room visit. If for any reason you are refused follow-up, please contact the [facility] Emergency Department at and asked to speak to the emergency department charge nurse. Sepsis Event Note (ED) - Evaluation Sepsis Screening Result: No Definite Risk - Focused Exam Vital Signs: Vital Signs Temp Pulse Resp BP Pulse Ox 06/25/20 13:45 36.6 C 94 18 126/76 98 - My Orders Last 24 Hours: My Active Orders 06/25/20 13:47 Sodium Chloride 0.9% [Saline Flush] 10 ml FLUSH ASDIRECTED PRN Sodium Chloride 0.9% [Saline Flush] 2.5 ml FLUSH ASDIRECTED PRN Saline Lock Insert [OM.PC] Stat - Assessment/Plan Last 24 Hours: My Active Orders 06/25/20 13:47 Sodium Chloride 0.9% [Saline Flush] 10 ml FLUSH ASDIRECTED PRN Sodium Chloride 0.9% [Saline Flush] 2.5 ml FLUSH ASDIRECTED PRN Saline Lock Insert [OM.PC] Stat
[2020-06-25 15:22] LABS: BLOOD UREA NITROGEN,BUN 9 mg/dL (7.0-18.0); CARBON DIOXIDE,CO2 25.1 mmol/L (21.0-32.0); CHLORIDE,CL 104 mmol/L (98-107); GLUCOSE RANDOM 76 mg/dL (74-106); LIPASE 363 U/L (73-393); POTASSIUM,K 3.5 mmol/L (3.5-5.1); SODIUM,NA 140 mmol/L (136-145)
== END 2020-06-25 16:15 | disposition home or self-care (01) ==
LOC: MW.ED 12:45
DX: K80.70 Calculus of gallbladder and bile duct without cholecystitis without obstruction (principal); Z79.899 Other long term (current) drug therapy
CPT/HCPCS: 76705; 80053; 81001; 81025; 83690; 84703; 85025; 85610; 85730; 87086; 96374; 96375; 99284; J1885; J2405; J3490; J7030

== ENCOUNTER 2020-07-02 07:37 | Day surgery (SDC) | payer OTHER ==
[~2020-07-02 07:37] MED LIST: Lactated Ringers 1,000 ML IV SCH; Lidocaine 2% 5 ML SDV ONE; Midazolam 1 MG/ML 2 ML SDV ONE; Propofol 200 MG/20 ML SDV ONE; fentaNYL 100 MCG/2 ML SDV ONE
--- NOTE | 2020-07-02 08:23 | PCM.PREANE ---
Preanesthetic Assessment - Anesthesia/Transfusion/Family Hx Anesthesia History: No Prior Anesthesia Family History of Anesthesia Reaction: No Transfusion History: No Prior Transfusion(s) Intubation History: Unknown - Review of Systems General: No Symptoms Pulmonary: No Symptoms Cardiovascular: No Symptoms Gastrointestinal: Abdominal Pain (right upper quadrant) Neurological: No Symptoms Other: Reports: None - Physical Assessment Vital Signs: Last Vital Signs Temp 36.9 C 07/02/20 08:07 Pulse 84 07/02/20 08:07 Resp 16 07/02/20 08:07 BP 136/56 L 07/02/20 08:07 Pulse Ox 99 07/02/20 08:07 Height: 5 ft 1 in Weight: 57.606 kg ASA Class: 2 Mental Status: Alert & Oriented x3 Airway Class: Mallampati = 2 Dentition: Reports: Normal Dentition Thyro-Mental Finger Breadths: 3 Mouth Opening Finger Breadths: 2 ROM/Head Extension: Full Lungs: Clear to Auscultation, Normal Respiratory Effort Cardiovascular: Regular Rate, Regular Rhythm - Lab Values: Laboratory Last Values Urine HCG, Qual NEGATIVE (NEGATIVE) 07/02/20 07:50 - Allergies Allergies/Adverse Reactions: Allergies Allergy/AdvReac Type Severity Reaction Status Date / Time No Known Allergies Allergy Verified 06/30/20 08:18 - Blood Blood Available: No - Anesthesia Plan Pre-Op Medication Ordered: None - Acknowledgements Anesthesia Type Planned: MAC Pt an Appropriate Candidate for the Planned Anesthesia: Yes Alternatives and Risks of Anesthesia Discussed w Pt/Guardian: Yes Pt/Guardian Understands and Agrees with Anesthesia Plan: Yes PreAnesthesia Questionnaire HEENT History: Reports: None Cardiovascular History: Reports: None Respiratory History: Reports: None Gastrointestinal History: Reports: Cholelithiasis, GERD Genitourinary History: Reports: None INGREDIENT MIXER History: Reports: None, , Other (See Below) Other OB/BYN History: 04/2020 Vaginal Musculoskeletal History: Reports: None Neurological History: Reports: None Psychiatric History: Reports: None Endocrine/Metabolic History: Reports: None Hematologic History: Reports: None Immunologic History: Reports: None Oncologic (Cancer) History: Reports: None Dermatologic History: Reports: None - Infectious Disease History Infectious Disease History: Reports: Chicken Pox - Past Surgical History Female Surgical History: Reports: None, Other (See Below) (cerclage) - SUBSTANCE USE Tobacco Use Status *Q: Never Tobacco User - HOME MEDS Home Medications: Home Meds Acetaminophen [Tylenol] 1 - 2 tab PO ASDIRECTED PRN 06/30/20 [History] Esomeprazole [NexIUM] 1 tab PO DAILY 06/30/20 [History] norethindrone-e.estradioL-iron [Junel Fe 1 MG-20 MCG] 1 tab PO DAILY 06/30/20 [History] - CURRENT (IN HOUSE) MEDS Current Meds: Current Medications Lactated Ringer's (Ringers, Lactated) 1,000 mls @ 125 mls/hr IV ASDIRECTED TOM Last Admin: 07/02/20 08:08 Dose: 125 mls/hr Documented by: Discontinued Medications Fentanyl (Sublimaze) Confirm Administered Dose 100 mcg .ROUTE .STK-MED ONE Stop: 07/02/20 07:09 Lidocaine (Xylocaine-Mpf 2%) Confirm Administered Dose 5 ml .ROUTE .STK-MED ONE Stop: 07/02/20 07:08 Midazolam HCl (Versed 1 Mg/Ml) Confirm Administered Dose 2 mg .ROUTE .STK-MED ONE Stop: 07/02/20 07:09 Propofol (Diprivan 20 Ml) Confirm Administered Dose 400 mg .ROUTE .STK-MED ONE Stop: 07/02/20 07:08
--- NOTE | 2020-07-02 09:39 | PCM.OPNOTE ---
- General Post-Op/Procedure Note Date of Surgery/Procedure: 07/02/20 Operative Procedure(s): Esophagogastroduodenoscopy with gastric biopsies Pre Op Diagnosis: Epigastric pain. Heartburn. Post-Op Diagnosis: Mild chronic gastritis Anesthesia Technique: MAC (ASA I) Primary Surgeon: Jerzy Wong Water Vessel Captain: Tamela Remy Condition: Good Free Text/Narrative:: DICTATION [id number] CPT CODE 31941
[2020-07-02] MEDS ORDERED: Lactated Ringers 1,000 ML IV SCH (09:45)
--- NOTE | 2020-07-02 10:03 | PCM.POSTAN ---
POST ANESTHESIA ASSESSMENT - MENTAL STATUS Mental Status: Alert, Oriented - VITAL SIGNS Vital Signs: Last Vital Signs Temp 36.4 C 07/02/20 09:22 Pulse 72 07/02/20 09:55 Resp 16 07/02/20 09:55 BP 112/61 07/02/20 09:55 Pulse Ox 99 07/02/20 09:55 - RESPIRATORY Respiratory Status: Respiratory Rate WNL, Airway Patent, O2 Saturation Stable - CARDIOVASCULAR CV Status: Pulse Rate WNL, Blood Pressure Stable - GASTROINTESTINAL GI Status: No Symptoms - PAIN Pain Score: 0 - POST OP HYDRATION Hydration Status: Adequate & Stable - OBSERVATIONS Free Text/Narrative:: No anesthesia problems
--- NOTE | 2020-07-02 10:20 | OR ---
SURGEON: Jerzy Wong M.D. DATE OF PROCEDURE: 07/02/2020 OPERATION PERFORMED: Esophagogastroduodenoscopy with gastric biopsy. PRIMARY SURGEON: Jerzy Wong MD MANUFACTURER'S REPRESENTATIVE: Decker Operator: EULALIO Cox student. ANESTHESIA: MAC. ASA CLASSIFICATION: I. PREOPERATIVE DIAGNOSIS: Epigastric pain with progressive heartburn. POSTOPERATIVE DIAGNOSIS: Mild chronic gastritis. DESCRIPTION OF PROCEDURE: The patient was taken to the endoscopy room and placed on the endoscopy table in the supine position. Time-out was called for appropriate identification of the patient and procedure. Monitored anesthesia care was provided. The bite block was placed between the patient's teeth. The gastroscope was inserted through the bite block and advanced without difficulty through the esophagus and stomach into the duodenum where examination was now carried out in a retrograde fashion. The duodenum showed no acute inflammatory changes or ulcerations. The stomach did show very mild chronic gastritis with a very fine reticular pattern to the mucosa. No ulcerations were noted. Antral biopsies were obtained to rule out Helicobacter pylori. The gastroscope was retroflexed to visualize the proximal stomach. No tumors or polyps were noted proximally and there was no significant inflammatory change. The gastroscope was then straightened and slowly withdrawn, carefully visualizing the greater and lesser curvatures. Again, no ulcerations were noted. The GE junction was well defined and showed no acute inflammatory changes or ulcerations. The stomach itself demonstrated good contractility. No mid or proximal lesions were identified. As the scope was withdrawn, the vocal cords were visualized and noted to move symmetrically. No vocal cord lesions were identified. The gastroscope was then removed with the patient having tolerated the procedure well. She was taken to recovery room in satisfactory condition. TRU / RANDI /[id number]
--- NOTE | 2020-07-02 10:52 | PCM48HPAN ---
Post Anesthesia Note - EVALUATION WITHIN 48HRS OF ANESTHETIC Vital Signs in Normal Range: Yes Patient Participated in Evaluation: Yes Respiratory Function Stable: Yes Airway Patent: Yes Cardiovascular Function Stable: Yes Hydration Status Stable: Yes Pain Control Satisfactory: Yes Nausea and Vomiting Control Satisfactory: Yes Mental Status Recovered: Yes Vital Signs: Last Vital Signs Temp 36.4 C 07/02/20 10:00 Pulse 70 07/02/20 10:00 Resp 18 07/02/20 10:00 BP 114/55 L 07/02/20 10:00 Pulse Ox 95 07/02/20 10:00 - COMMENTS/OBSERVATIONS Free Text/Narrative:: No anesthesia problems
== END 2020-07-02 10:45 | disposition home or self-care (01) ==
LOC: MW.SDS 07:37
PROVIDERS: ATTEND Surgery
DX: K29.50 Unspecified chronic gastritis without bleeding (principal); Z98.890 Other specified postprocedural states; K90.49 Malabsorption due to intolerance, not elsewhere classified; Z79.899 Other long term (current) drug therapy
CPT/HCPCS: 43239; 81025; J2001; J2250; J2704; J3010; J7120; 00731; 88305; 88312

== ENCOUNTER 2020-07-19 06:31 | Day surgery (SDC) | payer OTHER ==
[~2020-07-19 06:31] MED LIST changes: -Lidocaine 2% 5 ML SDV ONE; -Midazolam 1 MG/ML 2 ML SDV ONE; -Propofol 200 MG/20 ML SDV ONE; +cefOXitin 2 GM in Premix Bag 1 BAG IV ONE; -fentaNYL 100 MCG/2 ML SDV ONE
[2020-07-19] MEDS ORDERED: ceFAZolin 1 GM Vial ONE (07:13)
[2020-07-19] MEDS ORDERED: Bupivacaine 0.5% 10 ML SDV ONE (07:13)
[2020-07-19] MEDS ORDERED: Propofol 200 MG/20 ML SDV ONE ×2 (07:14)
[2020-07-19] MEDS ORDERED: Scopolamine 1.5 MG Transdermal Patch TRDERM PRN (07:17)
--- NOTE | 2020-07-19 07:17 | PCM.PREANE ---
Preanesthetic Assessment - Anesthesia/Transfusion/Family Hx Anesthesia History: No Prior Anesthesia Family History of Anesthesia Reaction: No Transfusion History: No Prior Transfusion(s) Intubation History: Unknown - Review of Systems General: No Symptoms Pulmonary: No Symptoms Cardiovascular: No Symptoms Neurological: No Symptoms Other: Reports: None - Physical Assessment NPO Status Date: 07/18/20 Vital Signs: Last Vital Signs Temp 97.2 F 07/19/20 06:35 Pulse 77 07/19/20 06:35 Resp 16 07/19/20 06:35 BP 124/66 07/19/20 06:35 Pulse Ox 99 07/19/20 06:35 Height: 5 ft 1 in Weight: 57.606 kg ASA Class: 1 Mental Status: Alert & Oriented x3 Airway Class: Mallampati = 1 Dentition: Reports: Normal Dentition ROM/Head Extension: Full Lungs: Clear to Auscultation, Normal Respiratory Effort Cardiovascular: Regular Rate, Regular Rhythm - Lab Values: Laboratory Last Values Urine HCG, Qual NEGATIVE (NEGATIVE) 07/19/20 06:40 - Allergies Allergies/Adverse Reactions: Allergies Allergy/AdvReac Type Severity Reaction Status Date / Time No Known Allergies Allergy Verified 07/13/20 10:33 - Blood Blood Available: No - Anesthesia Plan Pre-Op Medication Ordered: Other (scop) - Acknowledgements Anesthesia Type Planned: General Anesthesia Pt an Appropriate Candidate for the Planned Anesthesia: Yes Alternatives and Risks of Anesthesia Discussed w Pt/Guardian: Yes Pt/Guardian Understands and Agrees with Anesthesia Plan: Yes PreAnesthesia Questionnaire HEENT History: Reports: None Cardiovascular History: Reports: None Respiratory History: Reports: None Gastrointestinal History: Reports: None Genitourinary History: Reports: None POLE FRAMER History: Reports: None, , Other (See Below) Other OB/BYN History: 04/2020 Vaginal Musculoskeletal History: Reports: None Neurological History: Reports: None Psychiatric History: Reports: None Endocrine/Metabolic History: Reports: None Hematologic History: Reports: None Immunologic History: Reports: None Oncologic (Cancer) History: Reports: None Dermatologic History: Reports: None - Infectious Disease History Infectious Disease History: Reports: Chicken Pox - Past Surgical History GI Surgical History: Reports: None Female Surgical History: Reports: None, Other (See Below) - SUBSTANCE USE Tobacco Use Status *Q: Never Tobacco User - HOME MEDS Home Medications: Home Meds Acetaminophen [Tylenol] 1 - 2 tab PO ASDIRECTED PRN 06/30/20 [History] Esomeprazole [NexIUM] 1 tab PO DAILY 06/30/20 [History] norethindrone-e.estradioL-iron [Junel Fe 1 MG-20 MCG] 1 tab PO DAILY 06/30/20 [History] traMADol [Ultram] 50 mg PO Q6H PRN 7 Days #30 tab 07/06/20 [Rx] - CURRENT (IN HOUSE) MEDS Current Meds: Current Medications Lactated Ringer's (Ringers, Lactated) 1,000 mls @ 125 mls/hr IV ASDIRECTED TOM Last Admin: 07/19/20 06:45 Dose: 125 mls/hr Documented by: Discontinued Medications Cefoxitin Sodium 2 gm/ Premix 50 mls @ 100 mls/hr IV ONETIME ONE Stop: 07/19/20 06:29
[2020-07-19] MEDS ORDERED: Ketorolac 30 MG/ML SDV ONE (07:18)
[2020-07-19] MEDS ORDERED: Lidocaine 2% 5 ML SDV ONE (07:18)
[2020-07-19] MEDS ORDERED: Ondansetron 4 MG/2 ML SDV ONE (07:18)
[2020-07-19] MEDS ORDERED: Scopolamine 1.5 MG Transdermal Patch ONE (07:18)
[2020-07-19] MEDS ORDERED: fentaNYL 100 MCG/2 ML SDV ONE (07:20)
[2020-07-19] MEDS ORDERED: Midazolam 1 MG/ML 2 ML SDV ONE (07:20)
[2020-07-19] MEDS ORDERED: HYDROmorphone 2 MG/ML Syringe ONE (07:21)
[2020-07-19] MEDS ORDERED: ceFAZolin/Dextrose,Iso-Osmotic 2 GM/50 ML Duplex Bag IV ONE (07:22)
[2020-07-19] MEDS ORDERED: Rocuronium Bromide 50 MG/5 ML Syringe ONE (07:26)
[2020-07-19] MEDS ORDERED: Sugammadex Sodium 200 MG/2 ML VIAL ONE (07:28)
[2020-07-19] MEDS ORDERED: cefOXitin 1 GM Vial ONE (07:31)
[2020-07-19] MEDS ORDERED: Sodium Chloride 0.9% 20 ML ONE (07:32)
[2020-07-19] MEDS ORDERED: Morphine 10 MG/ML Syringe IVPUSH PRN (09:29)
[2020-07-19] MEDS ORDERED: Acetaminophen/HYDROcodone 325-5 MG Tab PO PRN (09:29)
[2020-07-19] MEDS ORDERED: Lactated Ringers 1,000 ML IV SCH (09:30)
--- NOTE | 2020-07-19 09:34 | PCM.OPNOTE ---
- General Post-Op/Procedure Note Date of Surgery/Procedure: 07/19/20 Operative Procedure(s): Laparoscopic cholecystectomy Pre Op Diagnosis: Symptomatic cholelithiasis Post-Op Diagnosis: Cholelithiasis with cholecystitis Anesthesia Technique: General ET Tube (ASA I) Primary Surgeon: Jerzy Wong Picking Machine Operator Helper: Tamela Remy Fluid Replacement, Intraop: 1,000 Output, Urine Amount: 500 EBL in mLs: 10 Condition: Good Free Text/Narrative:: DICTATION [id number] CPT CODE 20331
--- NOTE | 2020-07-19 09:51 | OR ---
SURGEON: Jerzy Wong M.D. DATE OF PROCEDURE: 07/19/2020 OPERATION PERFORMED: Laparoscopic cholecystectomy. PRIMARY SURGEON: Jerzy Wong M.D. TUBE FORMER OPERATOR: Construction Supervisor/Carpenter: Tamela Remy. ANESTHESIA: General endotracheal. ASA CLASSIFICATION: 1. PREOPERATIVE DIAGNOSIS: Symptomatic cholelithiasis. POSTOPERATIVE DIAGNOSIS: Symptomatic cholelithiasis. ESTIMATED BLOOD LOSS: 10 mL. INTRAOPERATIVE FLUID REPLACEMENT: 1000 mL of crystalloid. INTRAOPERATIVE URINARY OUTPUT: 500 mL. This. DESCRIPTION OF PROCEDURE: The patient was taken to the operating room and placed on the operating table in the supine position. A time-out was called for appropriate identification of the patient and procedure. Sequential compression boots were placed. Following satisfactory attainment of general endotracheal anesthesia, a Chacko catheter was placed. A time-out had been called at the beginning of the procedure. The abdomen was then prepped with DuraPrep solution. Sterile drapes were applied. An infraumbilical skin incision was made approximately 5 cm below the umbilicus as the patient was quite short. The skin was infiltrated with 0.5% Marcaine solution. The skin incision was made and hemostasis obtained with the use of electrocautery. The Veress needle was introduced into the peritoneal cavity. Saline drop test was positive. Following satisfactory attainment of satisfactory pneumoperitoneum, 5 mm camera and port were placed. The patient was now positioned with her feet down and rolled to the left. Under camera vision, 12 mm subxiphoid, 5 mm midclavicular, and 5 mm anterior axillary ports were placed. Each incision had preemptively been infiltrated with 0.5% Marcaine solution. The gallbladder was grasped and cholecystohepatic triangle was dissected free, clearly identifying the cystic duct with a good critical view before ligation with hemoclips and division. The cystic artery was likewise dissected out and again a good critical view obtained to make sure there were no other structures involved. Both structures were traced directly to the gallbladder. The cystic artery was likewise hemoclipped and divided with the laparoscopic Metzenbaum scissors. The gallbladder was then dissected away from the bed using electrocautery. No bile or stones were spilled. Once the gallbladder was amputated, it was promptly placed in an Endo Catch bag. The right upper quadrant was inspected for hemostasis and there was minimal oozing from the liver bed. The right upper quadrant was irrigated with sterile saline solution and fluid aspirated. Surgicel was placed into the bed of the gallbladder. The right hemidiaphragm was then irrigated with 250 mL of saline containing 20 mL of 0.5% Marcaine solution. That fluid was left in place. The EndoCatch containing gallbladder and 12 mm port were removed. Under camera vision, both 5 mm anterior axillary and midclavicular ports were removed, and finally the infraumbilical camera and port were removed. Wounds were inspected for hemostasis and no significant bleeding was noted. The subxiphoid and infraumbilical incisions were closed in 2 layers approximating the subcutaneous tissue with 3-0 Vicryl and the skin with subcuticular 4-0 Monocryl. The midclavicular and anterior axillary ports were closed with subcuticular 4-0 Monocryl. All incisions were Steri-Stripped and dressed with sterile Tegaderm pads. Sponge, needle, and instrument counts were all correct. Chacko catheter was removed prior to emergence from anesthesia. Following emergence from anesthesia and extubation, the patient was taken to recovery room in stable condition. TUR BRYAN /[id number]
--- NOTE | 2020-07-19 10:20 | PCM.POSTAN ---
POST ANESTHESIA ASSESSMENT - MENTAL STATUS Mental Status: Alert, Oriented - VITAL SIGNS Vital Signs: Last Vital Signs Temp 97.2 F 07/19/20 06:35 Pulse 60 07/19/20 10:03 Resp 14 07/19/20 10:03 BP 117/64 07/19/20 10:03 Pulse Ox 98 07/19/20 10:03 - RESPIRATORY Respiratory Status: Respiratory Rate WNL, Airway Patent, O2 Saturation Stable - CARDIOVASCULAR CV Status: Pulse Rate WNL, Blood Pressure Stable - GASTROINTESTINAL GI Status: No Symptoms - POST OP HYDRATION Hydration Status: Adequate & Stable
--- NOTE | 2020-07-19 12:20 | PCM48HPAN ---
Post Anesthesia Note - EVALUATION WITHIN 48HRS OF ANESTHETIC Vital Signs in Normal Range: Yes Patient Participated in Evaluation: Yes Respiratory Function Stable: Yes Airway Patent: Yes Cardiovascular Function Stable: Yes Hydration Status Stable: Yes Pain Control Satisfactory: Yes Nausea and Vomiting Control Satisfactory: Yes Mental Status Recovered: Yes Vital Signs: Last Vital Signs Temp 97.2 F 07/19/20 06:35 Pulse 59 L 07/19/20 11:33 Resp 14 07/19/20 11:33 BP 117/70 07/19/20 11:33 Pulse Ox 98 07/19/20 11:33
[2020-07-19] MEDS ORDERED: Ondansetron 4 MG Tab.DIS PO ONE (12:51)
== END 2020-07-19 13:40 | disposition home or self-care (01) ==
LOC: MW.SDS 06:31
PROVIDERS: ATTEND Surgery
DX: K80.10 Calculus of gallbladder with chronic cholecystitis without obstruction (principal); Z79.899 Other long term (current) drug therapy; Z98.890 Other specified postprocedural states
CPT/HCPCS: 47562; 81025; A9270; J0694; J1170; J1885; J2001; J2250; J2405; J2704; J3010; J3490; J7120; 00790; 88304; 88305; 88312; J0690

== ENCOUNTER 2022-06-22 08:44 | Emergency (ER) | payer BC ==
[2022-06-22] MEDS ORDERED: Morphine 4 MG/ML Syringe IVPUSH STA ×2 (09:14→10:07)
[2022-06-22] MEDS ORDERED: Ondansetron 4 MG/2 ML SDV IVPUSH ONE ×2 (09:14→10:07)
[2022-06-22] MEDS ORDERED: Lactated Ringers 1,000 ML IV STA ×2 (10:07→13:11)
[2022-06-22 10:27] LABS: POTASSIUM,K 3.7 mmol/L (3.5-5.1)
[2022-06-22] MEDS ORDERED: Pantoprazole 80 MG in Sodium Chloride 0.9% 10 ML IVPUSH ONE (10:40)
[2022-06-22] MEDS ORDERED: Alum Hydro/Mag Hydro/Simeth XS 15 ML, Lidocaine 2% 5 ML PO ONE ×2 (10:40)
[2022-06-22] MEDS ORDERED: fentaNYL 50 MCG/ML SDV IVPUSH ONE (12:14)
[2022-06-22] MEDS ORDERED: Iopamidol 755 MG/ML 500 ML Multipack Bottle IVPUSH ONE (12:58)
== END 2022-06-22 15:26 | disposition home or self-care (01) ==
LOC: MW.ED 08:44
DX: K29.00 Acute gastritis without bleeding (principal); E16.2 Hypoglycemia, unspecified; Z79.899 Other long term (current) drug therapy
CPT/HCPCS: 36415; 74177; 80053; 81001; 81025; 82947; 83690; 85025; 96361; 96374; 96375; 99284; A9270; C9113; J2270; J2405; J3010; J3490; J7120; Q9967

== ENCOUNTER 2023-03-26 14:54 | Emergency (ER) | payer BC ==
[2023-03-26] MEDS ORDERED: Sodium Chloride 0.9% 10 ML Syringe FLUSH PRN (15:39)
[2023-03-26] MEDS ORDERED: Sodium Chloride 0.9% 2.5 ML Syringe FLUSH PRN (15:39)
[2023-03-26] MEDS ORDERED: Promethazine 25 MG/ML SDV IM STA (15:40)
[2023-03-26] MEDS ORDERED: Sodium Chloride 0.9% 1,000 ML IV STA ×2 (15:40→17:01)
[2023-03-26 15:59] LABS: BASOPHILS PERCENT AUTO 0.3 % (0.0-1.5); EOSINOPHILS ABSOLUTE AUTO 0.1 K/uL (0.0-0.7); EOSINOPHILS PERCENT AUTO 0.9 % (0.0-7.0); HEMATOCRIT 43.2 % (36.0-46.0); HEMOGLOBIN 14.8 g/dL (12.0-16.0); LYMPHOCYTES ABSOLUTE AUTO 1.5 K/uL (0.6-2.4); LYMPHOCYTES PERCENT AUTO 17.7 % (16.0-40.0); MEAN CORPUSCULAR HGB CONC 34.3 g/dL (31.0-37.0); MEAN CORPUSCULAR VOLUME 90.6 fL (80.0-98.0); MONOCYTES ABSOLUTE AUTO 0.5 K/uL (0.0-0.8); MONOCYTES PERCENT AUTO 5.3 % (0.0-15.0); NEUTROPHILS ABSOLUTE AUTO 6.6 K/uL (1.4-5.7); NEUTROPHILS PERCENT AUTO 75.8 % (48.0-80.0); NRBC ABSOLUTE 0 K/uL; PLATELET COUNT,PLT 287 K/uL (150-400); RED BLOOD CELL COUNT 4.77 M/uL (4.30-5.90); WHITE BLOOD CELL COUNT,WBC 8.68 K/uL (4.0-11.0)
[2023-03-26 16:02] LABS: APPEARANCE,URINE SLT CLOUDY; BILIRUBIN,URINE NEGATIVE (NEGATIVE); COLOR,URINE YELLOW; GLUCOSE,URINE NEGATIVE (NEGATIVE); KETONES,URINE 15 mg/dL (NEGATIVE); LEUKOCYTE ESTERASE,URINE NEGATIVE (NEGATIVE); NITRITE,URINE NEGATIVE (NEGATIVE); OCCULT BLOOD,URINE TRACE-INTACT (NEGATIVE); PROTEIN,URINE TRACE mg/dL (NEGATIVE); UROBILINOGEN,URINE 0.2 EU/dL (<2.0)
[2023-03-26 16:08] LABS: A/G RATIO 0.8 (0.9-1.6); ALBUMIN 3.7 g/dL (3.4-5.0); BILIRUBIN TOTAL 0.3 mg/dL (0.2-1.0); CALCIUM 9.4 mg/dL (8.5-10.1); CARBON DIOXIDE,CO2 24.4 mmol/L (21.0-32.0); CREATININE 0.6 mg/dL (0.6-1.0); EST CRCL DRUG DOSING (CG) 115.16 mL/min; POTASSIUM,K 3.9 mmol/L (3.5-5.1); PROTEIN TOTAL,TP 8.2 g/dL (6.4-8.2)
[2023-03-26 16:44] LABS: AMORPHOUS SEDIMENT,URINE LIGHT (NEGATIVE); BACTERIA,URINE FEW (NEGATIVE); EPITHELIAL CELLS,URINE OCCASIONAL (NONE-FEW); MUCUS,URINE MODERATE (NONE-MOD); RBC,URINE 0-1 (0-2/HPF); TRIPLE PHOSPHATE CRYSTALS,UR OCCASIONAL (NEGATIVE); WBC,URINE NONE SEEN (0-5/HPF)
[2023-03-26] MEDS ORDERED: Metoclopramide 10 MG/2 ML SDV IVPUSH STA (17:37)
== END 2023-03-26 19:24 | disposition home or self-care (01) ==
LOC: MW.ED 14:54
DX: O21.0 Mild hyperemesis gravidarum (principal); Z3A.01 Less than 8 weeks gestation of pregnancy
CPT/HCPCS: 36415; 76817; 80053; 81001; 83690; 83735; 84702; 85025; 96361; 96372; 96374; 99284; J2550; J2765; J3490; J7030

== ENCOUNTER 2023-05-11 10:58 | Emergency (ER) | payer BC ==
[2023-05-11] MEDS ORDERED: Sodium Chloride 0.9% 1,000 ML IV ONE ×2 (10:59→12:36)
[2023-05-11] MEDS ORDERED: Acetaminophen 500 MG Tab PO ONE (10:59)
[2023-05-11] MEDS ORDERED: Morphine 4 MG/ML Syringe IVPUSH ONE (11:22)
[2023-05-11 11:54] LABS: BASOPHILS PERCENT AUTO 0.3 % (0.0-1.5); EOSINOPHILS PERCENT AUTO 0.1 % (0.0-7.0); LYMPHOCYTES ABSOLUTE AUTO 0.7 K/uL (0.6-2.4); LYMPHOCYTES PERCENT AUTO 8.5 % (16.0-40.0); MEAN CORPUSCULAR HEMOGLOBIN 30.4 pg (27.0-32.0); MEAN CORPUSCULAR HGB CONC 33.3 g/dL (31.0-37.0); MEAN CORPUSCULAR VOLUME 91.1 fL (80.0-98.0); MONOCYTES ABSOLUTE AUTO 0.8 K/uL (0.0-0.8); MONOCYTES PERCENT AUTO 9.7 % (0.0-15.0); NEUTROPHILS ABSOLUTE AUTO 6.4 K/uL (1.4-5.7); NEUTROPHILS PERCENT AUTO 81.4 % (48.0-80.0); NRBC ABSOLUTE 0 K/uL; PLATELET COUNT,PLT 207 K/uL (150-400); RED BLOOD CELL COUNT 3.95 M/uL (4.30-5.90); WHITE BLOOD CELL COUNT,WBC 7.87 K/uL (4.0-11.0)
[2023-05-11 12:20] LABS: APPEARANCE,URINE CLEAR; BILIRUBIN,URINE NEGATIVE (NEGATIVE); COLOR,URINE YELLOW; GLUCOSE,URINE NEGATIVE (NEGATIVE); KETONES,URINE NEGATIVE (NEGATIVE); LEUKOCYTE ESTERASE,URINE SMALL (NEGATIVE); NITRITE,URINE NEGATIVE (NEGATIVE); OCCULT BLOOD,URINE SMALL (NEGATIVE); PROTEIN,URINE TRACE mg/dL (NEGATIVE); UROBILINOGEN,URINE 0.2 EU/dL (<2.0)
[2023-05-11 12:31] LABS: CORONAVIRUS COVID-19 NAA POSITIVE (NEGATIVE); INFLUENZA A NAA NEGATIVE (NEGATIVE); INFLUENZA B NAA NEGATIVE (NEGATIVE)
[2023-05-11 12:34] LABS: LACTIC ACID 2.2 mmol/L (0.4-2.0)
[2023-05-11 12:40] LABS: A/G RATIO 0.7 (0.9-1.6); ALBUMIN 2.9 g/dL (3.4-5.0); BILIRUBIN TOTAL 0.2 mg/dL (0.2-1.0); C-REACTIVE PROTEIN 8.2 mg/dL (0.00-0.90); CALCIUM 8.2 mg/dL (8.5-10.1); CARBON DIOXIDE,CO2 20.2 mmol/L (21.0-32.0); CREATININE 0.7 mg/dL (0.6-1.0); EST CRCL DRUG DOSING (CG) 94.56 mL/min; MAGNESIUM 1.9 mg/dL (1.8-2.4); POTASSIUM,K 3.2 mmol/L (3.5-5.1); PROTEIN TOTAL,TP 7.3 g/dL (6.4-8.2)
[2023-05-11 12:44] LABS: EPITHELIAL CELLS,URINE FEW (NONE-FEW); RBC,URINE 0-5 (0-2/HPF); WBC,URINE 0-5 (0-5/HPF)
[2023-05-11 12:45] LABS: BACTERIA,URINE NOT SEEN (NEGATIVE); MUCUS,URINE LIGHT (NONE-MOD)
[2023-05-11] MEDS ORDERED: Potassium Chloride 20 MEQ Tab.ER PO ONE (12:53)
== END 2023-05-11 13:52 | disposition home or self-care (01) ==
LOC: MW.ED 10:58
DX: U07.1 COVID-19 (principal)
CPT/HCPCS: 0240U; 36415; 80053; 81001; 83605; 83735; 84702; 85025; 86140; 87040; 87651; 96361; 96374; 99283; A9270; J2270; J7030; 99284

== ENCOUNTER 2023-06-26 10:58 | Observation (INO) | payer BC ==
[2023-06-26] MEDS ORDERED: Azithromycin 500 MG Vial ONE (12:23)
[2023-06-26] MEDS ORDERED: Sodium Chloride 0.9% 10 ML Syringe FLUSH PRN (12:44)
[2023-06-26] MEDS ORDERED: Sodium Chloride 0.9% 20 ML SDV IV PRN (12:44)
[2023-06-26] MEDS ORDERED: Sodium Chloride 0.9% 2.5 ML Syringe FLUSH PRN (12:44)
[2023-06-26] MEDS ORDERED: Ondansetron 4 MG/2 ML SDV ONE (13:01)
[2023-06-26] MEDS ORDERED: Ketorolac 30 MG/ML SDV ONE (13:01)
== END 2023-06-26 17:49 | disposition home or self-care (01) ==
LOC: MW.OBCHECK 10:58 → MW.OB 11:02 → MW.OBCHECK 11:29 → MW.SDS 11:30 → MW.OB 11:33 → MW.SDS 11:33 → MW.OB 11:58
PROVIDERS: ADMIT Obstetrics & Gynecology; ATTEND Obstetrics & Gynecology
DX: O34.32 Maternal care for cervical incompetence, second trimester (principal); Z3A.21 21 weeks gestation of pregnancy
CPT/HCPCS: 51701; 59320; C1729; J0456; J1885; J2405